=== PATIENT | female | born 1995 | race Caucasian/White ===

== ENCOUNTER 2017-06-27 13:41 | Inpatient (IN) | payer BC ==
[~2017-06-27] VITALS: Ht 152.4 cm; Wt 51.7 kg
[2017-06-27 14:22] LABS: BASOPHILS # (AUTO) 0.1 /CMM (0.0-0.2); BASOPHILS % (AUTO) 0.3 % (0.0-2.0); EOSINOPHILS # (AUTO) 0.1 /CMM (0.0-0.7); EOSINOPHILS % (AUTO) 0.3 % (0.0-6.0); HEMATOCRIT 35 % (33-45); HEMOGLOBIN 11.8 g/dL (11.5-14.8); LYMPHOCYTES # (AUTO) 1.3 /CMM (0.8-4.8); LYMPHOCYTES % (AUTO) 5.6 % (20.0-44.0); MEAN CORPUSCULAR HEMOGLOBIN 30 PG (26.0-33.0); MEAN CORPUSCULAR HGB CONC 34 g/dl (31.0-36.0); MEAN CORPUSCULAR VOLUME 86 fL (82-100); MONOCYTES # (AUTO) 0.8 /CMM (0.1-1.30); MONOCYTES % (AUTO) 3.3 % (2.0-12.0); NEUTROPHILS # (AUTO) 21.2 /CMM (1.8-8.9); NEUTROPHILS % (AUTO) 90.5 % (43.0-81.0); PLATELET COUNT (AUTO) 380 /CMM (150-450); RDW COEFFICIENT OF VARIATION 11.2 (11.5-15.0); RED BLOOD CELL COUNT(AUTO) 4.01 MIL/uL (4.0-5.2); WHITE BLOOD COUNT (AUTO) 23.5 K/uL (4.3-11.0)
[2017-06-27] MEDS ORDERED: ONDANSETRON HCL/PF 4 MG/2 ML VIAL ONE (14:23)
[2017-06-27] MEDS ORDERED: FAMOTIDINE/PF INJ 20 MG/2 ML VIAL IV ONE ×2 (14:23→14:30)
[2017-06-27] MEDS ORDERED: IV NS 0.9% 1,000 ML BAG IV ONE ×2 (14:30→15:30)
[2017-06-27] MEDS ORDERED: ONDANSETRON HCL/PF 4 MG/2 ML VIAL IVP ONE (14:30)
--- NOTE | 2017-06-27 14:31 | NUR ---
PT REC'D TO ER C/O N/V FOR ONE DAY PT STATED WAS DRINKING LAST NIGHT . IV STARTED 20G RT AC LABS DRAWN SENT TO LAB . PEND ING UMANG MOTHER AT BEDSIDE . MOTHER STATED SHE IS ANXIOUS
[2017-06-27 14:35] LABS: CALCIUM, SERUM 9.2 mg/dL (8.5-10.1); CARBON DIOXIDE 19 mmol/L (21-32); CHLORIDE 105 mmol/L (98-107); CREATININE 0.9 mg/dL (0.6-1.3); GLUCOSE 139 mg/dL (74-106); POTASSIUM 3.4 mmol/L (3.5-5.1); SODIUM SERUM 143 mmol/L (136-145); UREA NITROGEN, BLOOD 9 mg/dL (7-18)
[2017-06-27 14:41] LABS: ALANINE AMINOTRANSFERASE 10 U/L (12-78); ALKALINE PHOSPHATASE 46 U/L (46-116); ASPARTATE AMINOTRANSFERASE 12 U/L (15-37); BILIRUBIN,DIRECT 0.2 mg/dL (0.0-0.2); BILIRUBIN,TOTAL 0.5 mg/dL (0.2-1.0); LIPASE 93 U/L (73-393); TOTAL PROTEIN, SERUM 8.5 g/dL (6.4-8.2)
[2017-06-27] MEDS ORDERED: POTASSIUM CHLORIDE 20 MEQ TAB.PRT.SR PO ONE ×2 (15:00→15:30)
[2017-06-27] MEDS ORDERED: IV NS 0.9% 250 ML IV ONE (15:19)
[2017-06-27] MEDS ORDERED: IOHEXOL-300 100 ML VIAL IV ONE (15:19)
[2017-06-27] MEDS ORDERED: METOCLOPRAMIDE HCL 10 MG/2 ML VIAL IV ONE (15:30)
[2017-06-27 15:31] LABS: APPEARANCE,URINE Clear (CLEAR); BILIRUBIN,URINE Negative (NEGATIVE); BLOOD, URINE Negative Ery/uL (NEGATIVE); COLOR,URINE Yellow (YELLOW); KETONES,URINE >=160 (NEGATIVE); LEUKOCYTE ESTERASE ,URINE Trace (NEGATIVE); NITRITE, URINE Negative (NEGATIVE); PROTEIN,URINE 100 mg/dl (NEGATIVE); UGLUCOSE Negative (NEGATIVE); UROBILINOGEN,URINE 0.2 EU/dL (0.2)
[2017-06-27] MEDS ORDERED: METOCLOPRAMIDE HCL 10 MG/2 ML VIAL ONE (15:31)
[2017-06-27 15:32] LABS: PREGNANCY TEST URINE QUAL NEGATIVE (NEGATIVE)
--- NOTE | 2017-06-27 15:35 | NUR ---
PT AMB TO BR VOIDED UA SENT TO LAB VS KDUR 40 PO AND REGLAN 5 MG IVP PT SENT CT
[2017-06-27 15:52] LABS: RBC,URINE 0-2 /HPF (0-2)
[2017-06-27 15:53] LABS: BACTERIA,URINE Few /HPF (None Seen); SQUAMOUS EPITHELIAL CELL,UR Moderate /HPF (None Seen)
--- NOTE | 2017-06-27 16:11 | NUR ---
DR SHAH SPOKE WITH DR MÉNDEZ REGARDING PT
[2017-06-27] MEDS ORDERED: PIPERACILLIN /TAZOBACTAM 3.375 G in IV D5W 50 ML IV STA (16:18)
--- NOTE | 2017-06-27 16:18 | NUR ---
CALLED DR COOK FOR SURGICAL CONSULT
--- NOTE | 2017-06-27 16:20 | NUR ---
CALLED NURSING CRYSTAL SLICER FOR TELE BED Addendum: 06/27/17 at 1622 by PRACHI MED/SURG BED
--- NOTE | 2017-06-27 16:30 | NUR ---
ULTRASOUND DONE PT TOLERATED WELL VSS ZOSYN GIVEN PER MD ORDER
--- NOTE | 2017-06-27 16:52 | NUR ---
LACTIC ACID 2.3
--- NOTE | 2017-06-27 16:55 | NUR ---
PAGED DR NG FOR A CONSULT
[2017-06-27] MEDS ORDERED: IV NS 0.9% 1,000 ML IV PRN (17:37)
--- NOTE | 2017-06-27 17:49 | NUR ---
IV HEPLOCKED PT STATED FEELING BETTER . STABLE FOR TRANSFER TO FLOOR
[2017-06-27] MEDS ORDERED: PIPERACILLIN /TAZOBACTAM 4.5 G in IV D5W 50 ML IV SCH (18:00)
[2017-06-27] MEDS ORDERED: PANTOPRAZOLE 40 MG VIAL IV SCH (18:00)
[2017-06-27] MEDS ORDERED: ONDANSETRON HCL/PF 4 MG/2 ML VIAL IVP PRN (18:00)
[2017-06-27] MEDS ORDERED: Z GUARD REMEDY 2 OZ OINT TP PRN (18:00)
[2017-06-27] MEDS ORDERED: ACETAMINOPHEN 325 MG TABLET PO PRN (18:00)
--- NOTE | 2017-06-27 18:10 | NUR ---
FEMALE PT. BROUGHT UP TO RM. TO BE ADM. TO RM. 307-1.FAMILY AND MOM AT BEDSIDE.NO NAUSEA AT THIS TIME. GIVEN CLEAR LIQ. TRAY.
[2017-06-27 18:20] VITALS: BP 96/63
--- NOTE | 2017-06-27 19:10 | NUR ---
MS RN NOTES: FAMILY MEMBERS AT BEDSIDE. RECEIVED PT IN BED AND IS AWAKE. PT IS A/OX 4. NO S/S OF DISTRESS NOTED AT THIS TIME. PT DENIES ANY PAIN. NO N/V PRESENT. IV ON R AC #20G AND IS PATENT AND INTACT. WILL START PT ON IV NS AT 75ML/HR. PT IS ON CLEAR LIQUIDS DIET. WILL CONTINUE TO MONITOR PT.
[2017-06-27 20:00] VITALS: BP 95/53
[2017-06-27] MEDS: PIPERACILLIN /TAZOBACTAM 3.375 G in IV D5W 50 ML IV SCH (23:08)
[2017-06-28] MEDS: PIPERACILLIN /TAZOBACTAM 3.375 G in IV D5W 50 ML IV SCH (05:05)
[2017-06-28 06:50] LABS: ALBUMIN 3.3 g/dL (3.4-5.0); BILIRUBIN,TOTAL 0.5 mg/dL (0.2-1.0); CALCIUM, SERUM 7.8 mg/dL (8.5-10.1); CREATININE 0.6 mg/dL (0.6-1.3); MAGNESIUM 1.7 mg/dL (1.8-2.4); PHOSPHORUS 3.2 mg/dL (2.5-4.9); POTASSIUM 3.3 mmol/L (3.5-5.1); TOTAL PROTEIN, SERUM 6.2 g/dL (6.4-8.2)
--- NOTE | 2017-06-28 07:10 | NUR ---
RN NOTES PT IS IN BED, AWAKE , A/OX4 WITH MOTHER AT BEDSIDE. IV ON RAC RUNNING NS AT 75 ML/HR. NO SIGNS OF DISTRESS OR COMPLAINTS OF PAIN AT THIS TIME. ALL SAFETY MEASURES ARE IN PLACE. WILL CONTINUE TO MONITOR.
--- NOTE | 2017-06-28 07:21 | NUR ---
MS RN CLOSING NOTES: ALL NEEDS WERE ATTENDED AND ANTICIPATED FOR. PT IS IN BED RESTING WITH MOTHER AT BEDSIDE. PT IS A/OX4. NO S/S OF DISTRESS NOTED AT THIS TIME. PT DENIES ANY PAIN. NO N/V THROUGHOUT MY SHIFT. IV ON R AC #20G AND IS PATENT AND INTACT BEING INFUSED WITH IV NS AT 75ML/HR. ENDORSED TO AM NURSE FOR MARI.
[2017-06-28 07:23] LABS: BASOPHILS % (AUTO) 0.2 % (0.0-2.0); EOSINOPHILS % (AUTO) 0.3 % (0.0-6.0); HEMATOCRIT 27 % (33-45); HEMOGLOBIN 9.2 g/dL (11.5-14.8); LYMPHOCYTES % (AUTO) 28.4 % (20.0-44.0); MEAN CORPUSCULAR HEMOGLOBIN 30 PG (26.0-33.0); MEAN CORPUSCULAR HGB CONC 35 g/dl (31.0-36.0); MEAN CORPUSCULAR VOLUME 86 fL (82-100); MONOCYTES # (AUTO) 1.1 /CMM (0.1-1.30); MONOCYTES % (AUTO) 10.6 % (2.0-12.0); NEUTROPHILS # (AUTO) 6.3 /CMM (1.8-8.9); NEUTROPHILS % (AUTO) 60.5 % (43.0-81.0); PLATELET COUNT (AUTO) 205 /CMM (150-450); RED BLOOD CELL COUNT(AUTO) 3.11 MIL/uL (4.0-5.2); WHITE BLOOD COUNT (AUTO) 10.4 K/uL (4.3-11.0)
[2017-06-28 08:00] VITALS: BP 104/57
[2017-06-28] MEDS ORDERED: PANTOPRAZOLE 40 MG/PACK PACK PO SCH (09:00)
[2017-06-28] MEDS ORDERED: POTASSIUM CHLORIDE 20 MEQ TAB.PRT.SR PO ONE ×2 (09:00→10:00)
[2017-06-28] MEDS ORDERED: MAGNESIUM OXIDE 400 MG TABLET PO ONE (09:30)
[2017-06-28] MEDS ORDERED: Magnesium 1GM/D5W 100ML PREMIX 100 ML IV SCH (10:00)
[2017-06-28] MEDS ORDERED: POTASSIUM CHLORIDE 20 MEQ POWDER PACKET NG SCH (10:00)
--- NOTE | 2017-06-28 10:18 | NUR ---
K DUR 20MEQ NON ADMINISTERED, PER MARCIA/PHARMACY ERROR ENTER. K-DUR 40 MEQ PO GIVEN BY BENIGNO AT 0904
--- NOTE | 2017-06-28 12:40 | NUR ---
PT WAS DISCHARGED IN STABLE CONDITION BY PRIVATE CAR WITH AUNT AND MOTHER. DISCHARGE FORMS AND BELONGINGS LIST WERE SIGNED. IV AND ID BAND WERE REMOVED. PT WAS TOLD TO FOLLOW UP WITH PCP WITHIN 1 WEEK. PT STATED THEY WOULD MAKE THE APPOINTMENT ON THEIR OWN. Addendum: 06/28/17 at 1332 by ELANA SCOTT RN PT DID NOT TAKE CIPRO PRESCRIPTION. PT STATED SHE COULD NOT TAKE THAT MEDICATION. WAS NOTIFIED AND CHANGED IT TO [facility]. PRESCRIPTION WAS CALLED IN TO PATIENTS PHARM[facility].
== END 2017-06-28 12:05 | disposition home or self-care (01) | DRG 445 ==
LOC: ER 13:50 → MED 17:25
PROVIDERS: ADMIT Internal Medicine; ATTEND Internal Medicine
DX: K81.9 Cholecystitis, unspecified (principal); B17.9 Acute viral hepatitis, unspecified; D72.829 Elevated white blood cell count, unspecified
CPT/HCPCS: 36415; 76705-TC; 80048-TC; 80053-TC; 80061-TC; 80074; 80076-TC; 81000-TC; 83605-TC; 83690-TC; 83735-TC; 84100-TC; 84703-TC; 85025-TC; 87040-TC; 87081-TC; 87086-TC; 87340; J2405; J2543; J2765; J3490; J7030; J7050; J7060; Q9967; Z7610